=== PATIENT | female | born 1950 | race Two or more races ===

== ENCOUNTER 2022-08-18 11:44 | Outpatient (CLI) | payer OTHER | END 2022-08-18 11:52 | disposition home or self-care (01) | LOC: SONOGRAMA 11:44 | PROVIDERS: ATTEND Surgery | DX: R22.9 Localized swelling, mass and lump, unspecified (principal) ==

== ENCOUNTER 2022-08-29 06:44 | Outpatient (CLI) | payer OTHER | END 2022-08-29 06:53 | disposition home or self-care (01) | LOC: LAB 06:44 | PROVIDERS: ATTEND Urology | DX: R31.0 Gross hematuria (principal); R97.20 Elevated prostate specific antigen [PSA] ==

== ENCOUNTER 2022-09-16 17:57 | Emergency (ER) | payer OTHER ==
[~2022-09-16] VITALS: Ht 180.3 cm; Wt 92.1 kg
== END 2022-09-16 20:42 | disposition home or self-care (01) ==
LOC: ER 17:57
DX: R50.9 Fever, unspecified (principal); Z20.828 Contact with and (suspected) exposure to other viral communicable diseases

== ENCOUNTER 2022-10-19 07:27 | Outpatient (CLI) | payer OTHER | END 2022-10-19 07:28 | disposition home or self-care (01) | LOC: LAB 07:27 | PROVIDERS: ATTEND Urology | DX: N30.00 Acute cystitis without hematuria (principal) ==

== ENCOUNTER 2023-05-18 07:12 | Outpatient (CLI) | payer OTHER | END 2023-05-18 07:19 | disposition home or self-care (01) | LOC: SONOGRAMA 07:12 | PROVIDERS: ATTEND Urology | DX: C61 Malignant neoplasm of prostate (principal); D29.1 Benign neoplasm of prostate ==

== ENCOUNTER 2023-10-13 12:09 | Emergency (ER) | payer OTHER ==
[~2023-10-13] VITALS: Ht 180.3 cm; Wt 92.1 kg
[2023-10-13] MEDS ORDERED: CEFTRIAXONE SODIUM 1,000 MG VIAL IM ONE (17:45)
[2023-10-13] MEDS ORDERED: LIDOCAINE HCL 100 MG/10ML VIAL PERCUT ONE (17:45)
[2023-10-13] MEDS ORDERED: ACETAMINOPHEN WITH CODEINE 1 UDTAB TABLET PO ONE (17:45)
== END 2023-10-13 19:04 | disposition home or self-care (01) ==
LOC: ER 12:09
DX: L72.3 Sebaceous cyst (principal); L02.11 Cutaneous abscess of neck; I10 Essential (primary) hypertension
CPT/HCPCS: 10060; 96372; 99282; J0696